=== PATIENT | female | born 1990 | race Caucasian/White ===

== ENCOUNTER 2019-05-20 14:06 | Outpatient (CLI) | payer OTHER ==
[2019-05-20] MEDS ORDERED: NORG1TAB90 PO (14:27)
[2019-05-30] MEDS ORDERED: ROPIvacaine/PF 0.5%, 30 ML ONE (13:02)
[2019-05-30] MEDS ORDERED: LIDOCAINE 1%-EPI 1:100K, 20ML ONE (13:03)
== END 2019-05-20 23:59 | disposition home or self-care (01) ==
LOC: STAR 14:06
PROVIDERS: ATTEND Orthopaedic Surgery
DX: Z02.9 Encounter for administrative examinations, unspecified (principal)